=== PATIENT | female | born 2000 | race Caucasian/White ===

== ENCOUNTER 2020-04-01 09:15 | Outpatient (RCR) | payer OTHER, SELFPAY ==
[2020-03-22 12:17] VITALS: BMI 18.1
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
--- NOTE | 2020-03-26 14:07 | HO.PHPPROGNO ---
Subjective Subjective Date of Service: 03/26/20 Reason For Visit: depression Interim History: Pt reports she has been off cymbalta for the past 2 months. She reports she plans to start medication today once she picks it up from pharmacy. She reports fair sleep, waking up after 5-6 hrs of slee. She denies suicidal or homicidal ideation. She reports groups have been helpful in that she hears others experiences. Medication Compliance: No Side effects from medications: No Attending Groups: Yes Review of Systems Cardiovascular: Reports no additional cardiovascular complaints Respiratory: Reports no additional respiratory complaints Gastrointestinal: Reports no additional gastrointestinal complaints Genitourinary: Reports no additional female genitourinary complaints Endocrine: Reports no additional endocrine complaints Mental Status Exam Mental Status Exam Patient Orientation: Person, Place, Time and Situation Level of Consciousness: Awake, Appropriate and Alert Patient Behavior: Appropriate, Talkative, Passive and Anxious Mood Description: Anxious Affect Description: Flat Patient Cognition Impaired: No Ability to Follow Directions: Good Speech Pattern: Spontaneous Speech Memory Description: Intact Diagnostics Vital Signs (24Hr): Body Mass Index 18.1 Assessment & Plan Assessment & Plan (1) PTSD (post-traumatic stress disorder): Status: Acute Code(s): F43.10 - Post-traumatic stress disorder, unspecified Assessment and Plan: continue cymbalta 30mg po daily- pt just restarted this medication continue trazodone for sleep as needed (2) Recurrent major depression-severe: Status: Acute Code(s): F33.2 - Major depressive disorder, recurrent severe without psychotic features Assessment and Plan: -Pt met with her provider today. Continue current plan of care. -Lab work ordered. Certification I certify that partial hospital treatment is medically necessary due to the symptoms and problems resulting from the patient's mental illness and the failure to treat the patient at the partial hospital level of care would likely result in the patient requiring inpatient psychiatric care which could not be prevented at a less intensive level of care. Greater than 50% of the session was spent on counseling and/or coordination of care Discharge Plan Discharge Attending provider: Denis Amezcua Medications: No Action trazodone 50 mg Tablet 25 - 50 mg PO BEDTIME PRN (Reason: Insomnia) RF: 0 duloxetine 30 mg Capsule,Delayed Release(Dr/Ec) 30 mg PO DAILY RF: 0 Corlanor 5 mg Tablet 2.5 mg PO BID PRN (Reason: Tachycardia) RF: 0 Telehealth Telehealth Location of provider rendering services: practice address Location of patient: address on file Patient Identification confirmed using: Name, : Yes Telehealth method: voice only Patient verbally consented to treatment: Yes Patient verbally consented to billing insurance company: Yes Patient informed of any privacy concerns related to visit: Yes Time spent with patient (mins): 25
== END 2020-04-01 23:55 | disposition home or self-care (01) ==
LOC: HO.PHPA 09:15
PROVIDERS: Visit Provider Psychiatry & Neurology Psychiatry
DX: F33.2 Major depressive disorder, recurrent severe without psychotic features (principal); F43.10 Post-traumatic stress disorder, unspecified; Z79.899 Other long term (current) drug therapy
CPT/HCPCS: 90791; 90853

== ENCOUNTER 2021-08-22 08:15 | Outpatient (RCR) | payer OTHER, SELFPAY ==
[2021-08-20 11:18] VITALS: BMI 18.5
--- NOTE | 2021-08-20 12:13 | PC.ADMIT ---
Patient is a 21 year old female who was referred to [facility] by her therapist d/t patient struggling with increased depression and anxiety, increased energy, and decreased need for sleep. Patient's therapist diagnosed patient with Bipolar II disorder one year ago according to patient. Patient reports VH at night when driving seeing, creepy things coming out of the booth . Patient stated she does not drive as a result. Patient also reports on a rare occasion she experiences AH of someone saying her name or some other word. Patient reported she impulsively left her job when she was feeling depressed and decided one morning she was not going to go back to work. Patient reports she liked her job however thinks she was struggling with depression and being off her medication. Patient stated she spoke to her boss who stated she is welcome to come back when feeling better. 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 Patient was restarted on Lamotrigine recently and was on 50 mg daily however stopped the medication 2-3 days ago d/t c/o headaches. Patient is currently engaged to her fiance whom she lives with at her fiance's grandparents home. Patient is alert and oriented x4. Calm and cooperative. Presents with depressed mood with anxious affect. Denied SI. Medication reconciled with patient and patient's pharmacy.
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
--- NOTE | 2021-08-21 14:25 | PC.NURSE ---
I called to check in with Maggi and when she didn't answer I left a message.
--- NOTE | 2021-08-21 14:26 | PC.NURSE ---
The clients emergency contact finger assembler, Mary, called this morning and left a message that the client will not be in today. She explained that she is safe just not feeling that good and not wanting to talk today.
--- NOTE | 2021-08-22 07:53 | PC.NURSE ---
case opened in treatment team
--- NOTE | 2021-08-22 10:58 | PC.NURSE ---
I called and spoke with pt after hearing from the group clinician that shes not in group. She said she has decided she doesn't want to be in PHP treatment and would like to discharge. She was calm and not pressured in her speech. She did not sound upset. She said she is okay and safe, and having no SI or other unsafe thoughts. She also said she is no ambivalent about her decision and feels good about it, stating it's just not a good time in my life for this .
--- NOTE | 2021-08-22 14:26 | PC.NURSE ---
I left a message with Anuradha Anand to inform her of the clients decision to be discharged from [facility]
--- NOTE | 2021-08-22 17:50 | PC.NURSE ---
Discharge Note: Patient discharged from [facility] today, 08/22/2021. Discharge per patient request. Patient states she is not ready for PHP at this time, she feels this is the right decision for her at this time. Patient spoke with MEENA Carvajal regarding her decision. Patient denies SI/HI. Patient states good understanding of discharge medications use and frequency. Discharge medication list faxed to out patient providers.
== END 2021-08-22 23:59 | disposition home or self-care (01) ==
LOC: HO.PHPA 08:15
PROVIDERS: Visit Provider Psychiatry & Neurology Psychiatry
DX: F31.81 Bipolar II disorder (principal); F43.10 Post-traumatic stress disorder, unspecified
CPT/HCPCS: 90791; 90853

== ENCOUNTER 2021-11-05 21:25 | Emergency (ER) | payer OTHER, SELFPAY ==
[2021-11-05 21:27] VITALS: BP 132/75; PULSE 115; RESP 18; TEMP 36.8; O2SAT 100; BMI 19.6
--- NOTE | 2021-11-05 21:33 | ECG_ITS ---
Test Reason : CP Blood Pressure : / mmHG Vent. Rate : 102 BPM Atrial Rate : 102 BPM P-R Int : 156 ms QRS Dur : 072 ms QT Int : 334 ms P-R-T Axes : 051 061 041 degrees QTc Int : 435 ms Sinus tachycardia Otherwise normal ECG No previous ECGs available Referred By: Generic ED Physician Electronically Signed By:RENEA THOMPSON
[2021-11-05 22:10] LABS: MANUAL DIFF FLAG NO
[2021-11-05 22:13] LABS: Basophils Percent Auto 0.4 % (0-2); Eosinophils Absolute Auto 0.1 X10*3/uL (0.0-0.4); Eosinophils Percent Auto 2.6 % (0-4); Hematocrit 35.5 % (37.0-47.0); Hemoglobin 12.3 g/dl (12.0-16.0); Imm Gran Abs Auto 0.02 X10*3/uL (0.00-0.03); Imm Gran Pct Auto 0.4 % (0.0-0.4); Lymphocytes Absolute Auto 1.9 X10*3/uL (1.2-4.9); Lymphocytes Percent Auto 35.9 % (20-40); Mean Corpuscular HGB Conc 34.6 g/dl (31.0-35.0); Mean Corpuscular Hemoglobin 31.1 pg (27.0-33.0); Mean Corpuscular Volume 89.6 fL (80.0-98.0); Mean Platelet Volume 8.9 fL (9.4-12.3); Monocytes Absolute Auto 0.6 X10*3/uL (0.1-1.2); Monocytes Percent Auto 11.6 % (2-11); Neutrophils Absolute Auto 2.6 x10*3/uL (2.0-8.3); Neutrophils Percent Auto 49.1 % (45-73); Platelet Count 193 X10*3/uL (160-400); Red Blood Count 3.96 X10*6/uL (4.20-5.50); Red Cell Distribution Width 11.4 % (11.0-16.0); White Blood Count 5.4 X10*3/uL (4.8-10.8)
[2021-11-05 22:27] LABS: Anion Gap 16 (12-20); Blood Urea Nitrogen 11 mg/dL (9-16); Calcium 8.9 mg/dL (8.4-10.2); Carbon Dioxide 23 mmol/L (22-29); Chloride 106 mmol/L (96-108); Creatinine Clr Calc Pharmacy 95.2; Estimated Glomerular Filt Rate > 60; Glucose Random 92 mg/dL (60-115); Potassium 3.7 mmol/L (3.3-5.1); Sodium 141 mmol/L (135-145)
[2021-11-05 22:35] LABS: Troponin-I High Sensitivity < 3.5 ng/L (<3.5-17.0)
[2021-11-06 01:00] VITALS: BP 118/70; PULSE 99; RESP 18; O2SAT 100
--- NOTE | 2021-11-06 02:17 | ED_ITS ---
HPI - Chest Pain General Chief Complaint: Chest Pain Stated Complaint: chest pain, abdominal pain Time Seen by Provider: 11/06/21 02:17 Source: patient Mode of arrival: ambulatory Limitations: no limitations History of Present Illness HPI narrative: Patient with multiple complaints complaining of pain in that right lower rib area chest pain no shortness her no cough no fever or chills no nausea or vomiting patient does have a history of PTSD and bipolar disorder Related Data Home Medications Medication Instructions Recorded Confirmed diclofenac sodium 50 mg 50 mg PO BID 08/20/21 08/20/21 tablet,delayed release Previous Rx's Medication Instructions Recorded oxcarbazepine 300 mg tablet 300 mg PO DAILY #14 tabs 08/20/21 ibuprofen 600 mg tablet 600 mg PO Q6H PRN pain #30 tabs 11/06/21 Allergies Allergy/AdvReac Type Severity Reaction Status Date / Time apple [APPLES] Allergy Unknown SCRATCHY Verified 11/05/21 21:32 THROAT russell [CHERRIES] Allergy Unknown HIVES Verified 11/05/21 21:32 cinnamon [CINNAMON] Allergy Unknown BREATHING Verified 11/05/21 21:32 ISSUES latex [LATEX] Allergy Unknown SKIN RED Verified 11/05/21 21:32 AND ITCHY Review of Systems Review of Systems: Yes all other systems are reviewed and are negative PMFSH Past Medical History Medical History PTSD (post-traumatic stress disorder) Recurrent major depression-severe Sinus tachycardia Tendinitis of both hands Social History Social History Household Members: Significant Other and Other Household Members Other:: Boyfriends grandparents Alcohol intake: never Patient Tobacco Use Status: Never used Tobacco Advance Directives: No Advance Directives Information Provided: Yes Patient : No Physical Exam Vital Signs: Vital Signs: Last Vital Signs Temp 98.2 F 11/05/21 21:27 Pulse 84 11/06/21 03:31 Resp 16 11/06/21 03:31 BP 99/49 L 11/06/21 03:31 Pulse Ox 100 11/06/21 01:00 O2 Del Method 11/06/21 01:00 BMI result Body Mass Index 19.6 Appearance: Alert. Oriented X3. No acute distress. Eyes: PERRLA, No Nystagmus ENT: Pharynx normal. Oral Mucosa moist Neck: Normal inspection. Neck supple. CVS: Normal heart rate and rhythm. Pulses normal. Respiratory: No respiratory distress. Equal air entry bilateral, no wheezing/rales/rhonchi Abdomen: Soft mild tenderness right upper quadrant Bowel sounds are present, no mass palpable, no CVA tenderness Skin: Skin warm and dry. Normal skin color. Normal skin turgor. Extremities: No lower extremity edema. No calf tenderness Neuro: Oriented X 3. No motor deficit. MDM - Chest Pain MDM Narrative Medical decision making narrative: Bedside ultrasound negative for gallstones liver functions normal patient has nonspecific pain likely muscular labs are stable discharge patient home on ibuprofen Lab Data Attestation: I reviewed the patient's lab results. Result diagrams: 11/05/21 21:54 11/05/21 21:54 Labs: Lab Results 11/05/21 11/05/21 11/05/21 Range/Units 21:54 21:54 21:54 WBC 5.4 (4.8-10.8) X10*3/uL RBC 3.96 L (4.20-5.50) X10*6/uL Hgb 12.3 (12.0-16.0) g/dl Hct 35.5 L (37.0-47.0) % MCV 89.6 (80.0-98.0) fL MCH 31.1 (27.0-33.0) pg MCHC 34.6 (31.0-35.0) g/dl RDW 11.4 (11.0-16.0) % Plt Count 193 (160-400) X10*3/uL MPV 8.9 L (9.4-12.3) fL Immature Gran % (Auto) 0.4 (0.0-0.4) % Neut % (Auto) 49.1 (45-73) % Lymph % (Auto) 35.9 (20-40) % [place] % (Auto) 11.6 H (2-11) % Eos % (Auto) 2.6 (0-4) % Baso % (Auto) 0.4 (0-2) % Lymph # (Auto) 1.9 (1.2-4.9) X10*3/uL [place] # (Auto) 0.6 (0.1-1.2) X10*3/uL Eos # (Auto) 0.1 (0.0-0.4) X10*3/uL Baso # (Auto) 0.0 (0.0-0.2) X10*3/uL Abs Immat Gran (auto) 0.02 (0.00-0.03) X10*3/uL Absolute Neuts (auto) 2.6 (2.0-8.3) x10*3/uL Absolute Nucleated RBC 0.000 (0.0-0.012) X10*3/uL Nucleated RBC % (auto) 0.0 (0.0-0.2) /100WBC Sodium 141 (135-145) mmol/L Potassium 3.7 (3.3-5.1) mmol/L Chloride 106 (96-108) mmol/L Carbon Dioxide 23 (22-29) mmol/L Anion Gap 16 (12-20) BUN 11 (9-16) mg/dL Creatinine 0.69 (0.5-1.4) mg/dL Estim Creat Clear Calc 95.2 Estimated GFR > 60 Random Glucose 92 (60-115) mg/dL Calcium 8.9 (8.4-10.2) mg/dL Total Bilirubin 0.2 (0.0-1.0) mg/dL Direct Bilirubin 0.2 (0.0-0.5) mg/dL AST 21 (5-31) U/L ALT 15 (0-31) U/L Alkaline Phosphatase 67 (39-117) U/L Troponin I High Sens < 3.5 (<3.5-17.0) ng/L Total Protein 7.1 (6.5-8.0) g/dL Albumin 4.4 (3.5-5.0) g/dL Lipase 24 (8-78) U/L Discharge Plan Discharge Clinical Impression: Abdominal pain, Chest wall pain Patient Disposition: Home, Self-Care Instructions: Abdominal Pain (ED), Chest Wall Pain (ED) Additional Instructions: Take ibuprofen as advised Follow with PCP Prescriptions: New ibuprofen 600 mg tablet 600 mg PO Q6H PRN (Reason: pain) Qty: 30 0RF No Action diclofenac sodium 50 mg Tablet,Delayed Release (Dr/Ec) 50 mg PO BID Label Comments: Patient stated she last took the medication a few days ago. Stated she is taking for headaches. oxcarbazepine 300 mg tablet 300 mg PO DAILY Qty: 14 0RF Interventions: ED Discharge Assessment Last Done: 11/06/21 03:17 Discharge Date/Time: 11/06/21 03:31
[2021-11-06 02:50] LABS: Alanine Aminotransferase 15 U/L (0-31); Albumin Level 4.4 g/dL (3.5-5.0); Alkaline Phosphatase 67 U/L (39-117); Aspartate Amino Transferase 21 U/L (5-31); Bilirubin Direct 0.2 mg/dL (0.0-0.5); Bilirubin Total 0.2 mg/dL (0.0-1.0); Lipase 24 U/L (8-78); Total Protein 7.1 g/dL (6.5-8.0)
[2021-11-06] MEDS: Ibuprofen 600 MG TABLET PO (03:28)
--- NOTE | 2021-11-06 03:30 | PC.NURSE ---
Pt a&o, no sign of distress at time of discharge. Reviewed discharge instructions with pt. pt verbalized understanding.
[2021-11-06 03:31] VITALS: BP 99/49; PULSE 84; RESP 16
== END 2021-11-06 03:31 | disposition home or self-care (01) ==
PROVIDERS: Emergency Provider Internal Medicine
DX: R07.89 Other chest pain (principal); R07.81 Pleurodynia; R10.9 Unspecified abdominal pain; Z79.899 Other long term (current) drug therapy
CPT/HCPCS: 36415; 80048; 80076; 83690; 84484; 85025; 93005; 99284; 99285

== ENCOUNTER → 2022-05-27 11:49 | Outpatient (BNVA) | payer OTHER, SELFPAY | PROVIDERS: Visit Provider Internal Medicine Cardiovascular Disease | DX: I49.9 Cardiac arrhythmia, unspecified (principal); R07.89 Other chest pain | CPT/HCPCS: 93005; 99202 ==

== ENCOUNTER → 2022-07-13 08:03 | Outpatient (REF) | payer OTHER, SELFPAY ==
--- NOTE | 2022-07-13 08:06 | CA_ITS ---
Transthoracic Echocardiogram Patient (Last, First, Middle): Maggi Mtz, Gender: Female Date of : 2000 Age: 22 Procedure Date: 07/13/2022 Procedure Type: Transthoracic Echocardiogram Location: OP Height: 154.94 cm Weight: 48.99 kg BSA: 1.45 m2 Heart Rate: 85 bpm BP: 110 / 68 mmHg Hydrodynamics Professor: OLAMIDE Referring MD: Nicolas Rowe MD Symptoms: I49.9 - Cardiac arrhythmia, unspecified Study Quality: Adequate ECG Rhythm: Sinus Conclusions: - The left ventricular systolic function is normal. The calculated ejection fraction is 60% by biplane method. - No obvious valvular pathology seen on this study. Findings Left Ventricle Normal left ventricular cavity size. There is normal left ventricular wall thickness. The left ventricular systolic function is normal. The calculated ejection fraction is 60% by biplane method. There is no evidence of regional wall motion abnormalities. Diastolic function is normal for age. Right Ventricle Normal right ventricular cavity size and systolic function. Atria Both atria are normal in size. Aortic Valve There is a normal trileaflet aortic valve. There is no aortic valve stenosis. There is no aortic valve regurgitation. Mitral Valve The mitral valve appears normal. There is mild mitral valve regurgitation. There is no mitral valve stenosis. Pulmonic Valve The pulmonic valve is likely normal. Tricuspid Valve Normal tricuspid valve structure. There is mild tricuspid valve regurgitation. There is no evidence of pulmonary hypertension. Great Vessels The asc aorta is normal in size. Venous The inferior vena cava is normal in size and collapses greater than 50% with inspiration. Pericardium/Pleural There is no evidence of pericardial effusion. Prior Study Comparison No prior study available for comparison. Recommendations, Care & Conclusions No obvious valvular pathology seen on this study. Measurements 2D Linear Measurements IVSd: 0.63 0.6-0.9/0.6-1.0 cm LVIDd: 3.79 3.9-5.3/4.2-5.9 cm LVIDd Index: 2.61 2.4-3.2/2.2-3.1 cm/m2 LVIDs: 2.65 2.0-3.6 cm LVPWd: 0.84 0.7-1.1 cm LA Diam: 2.10 2.7-3.8/3.0-4.0 cm LAIDs Index: 1.45 1.5-2.3 cm/m2 LV Mass: 94.65 67-162/88-224 g LV Mass Index: 65.28 43-95/49-115 g/m2 LVOT Diam: 1.80 3.0+(-)1.3 cm 2D Systolic Function EF 4C: 57.80 >55% EF 2C: 62.40 >55% EF BiP: 59.80 >55% Mitral Valve MV Pk E: 1.19 MV PK A: 0.82 MV Decel Time: 217.00 E/A: 1.50 E'Lateral: 14.80 E'Medial: 12.00 E/E' Med: 9.90 E/E' Lat: 8.00 PHT: 63.00 MVA PHT: 3.49 Decel Jasper: 5.48 Aortic Valve AoV Pk Velasquez: 1.22 AoV Mn Velasquez: 0.87 AoV VTI: 0.25 AoV Pk Grad: 6.00 Aov Mn Grad: 3.00 HORACIO Cont.VTI: 2.03 LVOT LVOT Pk Velasquez: 1.01 LVOT Mn Velasquez: 0.73 LVOT VTI: 0.20 LVOT Pk Grad: 4.00 LVOT Mn Grad: 2.00 LVOT Diam: 1.80 LVOT Area: 2.54 Diastolic Function MV Pk E: 1.19 MV Pk A: 0.82 E/A: 1.50 E'Medial: 12.00 E/E' Med: 9.90 E' Laterial: 14.80 E/E' Lat: 8.00 Right Ventricle TAPSE (mm): 17.90 TVS' Velasquez: 10.00 Tricuspid Valve TR Pk Velasquez: 1.62 TR Pk Grad: 10.00 RA Press: 3.00 RVSP: 13.00 Great Vessels Aorta Sinus of Valsalva: 2.54 2.0-3.5 cm Ao Asc: 2.10 2.1-3.4 cm Updated in Other Vendor System with Status of Final Markus Hameed MD electronically signed on 07/13/2022 11:42:13 AM with status of Final
== END ==
LOC: HO.CARD 08:03
PROVIDERS: Visit Provider Internal Medicine Cardiovascular Disease
DX: I49.9 Cardiac arrhythmia, unspecified (principal)
CPT/HCPCS: 93306

== ENCOUNTER 2023-05-24 10:00 | Outpatient (RCR) | payer OTHER, SELFPAY ==
[2023-05-17 11:53] VITALS: BP 105/78; PULSE 97; TEMP 37.2
[2023-05-17 11:55] VITALS: BMI 19.6
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
--- NOTE | 2023-05-20 11:34 | HO.PHP ---
[facility] staff members received a message from the Admin, Nicole, stating that Maggi will not be in attendance to program today due to being sick. Nicole expressed that Maggi reported no safety concerns and will be here tomorrow.
--- NOTE | 2023-05-20 15:31 | HO.PHP ---
Client's case has been opened and reviewed in treatment team.
--- NOTE | 2023-05-21 14:18 | HO.PHP ---
PHP admin, Nicole, informed PHP team that Maggi contacted stating that she won't be in attendance to PHP today due to not feeling well. Maggi informed Nicole she feels she has the stomach bug. Maggi reported no concerns around SI, plan or intent and will be in attendance to program on Wednesday.
== END 2023-05-24 23:59 | disposition home or self-care (01) ==
LOC: HO.PHPA 10:00
PROVIDERS: Visit Provider Psychiatry & Neurology Psychiatry
DX: F31.81 Bipolar II disorder (principal); F43.10 Post-traumatic stress disorder, unspecified
CPT/HCPCS: 90791; 90853